=== PATIENT | female | born 1990 | race Caucasian/White ===

== ENCOUNTER 2021-03-26 07:09 | Outpatient (CLI) | payer OTHER | END 2021-03-26 07:10 | disposition home or self-care (01) | LOC: BICULT 07:09 | PROVIDERS: ATTEND Family Medicine | DX: R10.84 Generalized abdominal pain (principal) | CPT/HCPCS: 76700 ==

== ENCOUNTER 2021-09-21 14:18 | Outpatient (CLI) | payer OTHER | END 2021-09-21 14:19 | disposition home or self-care (01) | LOC: CTENTCT 14:18 | PROVIDERS: ATTEND Specialist | DX: J01.91 Acute recurrent sinusitis, unspecified (principal) | CPT/HCPCS: 70486 ==

== ENCOUNTER 2021-11-13 08:00 | Outpatient (CLI) | payer OTHER | END 2021-11-13 08:01 | disposition home or self-care (01) | LOC: SCSMRI 08:00 | PROVIDERS: ATTEND Psychiatry & Neurology Neurology | DX: G43.009 Migraine without aura, not intractable, without status migrainosus (principal); H53.9 Unspecified visual disturbance; C71.9 Malignant neoplasm of brain, unspecified | CPT/HCPCS: 70551 ==